=== PATIENT | female | born 1965 | race Caucasian/White ===

== ENCOUNTER 2023-04-15 13:31 | Emergency (ER) | payer OTHER, MEDICARE ==
[~2023-04-15] VITALS: Ht 160 cm; Wt 71.8 kg
[~2023-04-15 13:31] MED LIST: BACTRIM DS 8001 TAB PO; CEPHALEXIN500 M1 PO; NORCO 325 MG-51 TAB PO; PREDNISONE10 MG PO; ZOFRAN ODT4 MG PO
[2023-04-15 13:51] VITALS: TEMP 98.4
[2023-04-15 15:34] LABS: BASO % 0.2 % (0.0-2.0); EOS # 0.1 K/mm3 (0.0-0.7); EOS % 1.2 % (0.0-4.0); GRAN # 4.6 K/mm3 (1.4-6.5); GRAN % 53.8 % (42.2-75.2); HEMOGLOBIN 12.2 g/dl (12.5-16.0); LYMPH # 3.5 K/mm3 (1.2-3.4); MEAN CELL VOLUME 88 fl (80.0-100.0); MEAN CORPUSCULAR HEMOGLOBIN 28 pg (27-31); MEAN CORPUSCULAR HGB CONC 31 g/dl (33.0-37.0); MEAN PLATELET VOLUME 10.1 fl (7.4-10.4); MONO # 0.3 K/mm3 (0.1-0.6); MONO % 3.7 % (1.7-9.3); PLATELET COUNT 413 K/mm3 (130-400); RED BLOOD COUNT 4.42 M/mm3 (4.10-5.30); REDCELL DISTRIBUTION WIDTH-CV 14.1 % (11.5-14.5)
[2023-04-15 15:48] LABS: ALBUMIN 3.7 gm/dL (3.5-5.0); BILIRUBIN,TOTAL 0.2 mg/dL (0.2-1.2); CALCIUM 9.6 mg/dL (8.4-10.2); CREATININE, serum 0.79 mg/dL (0.57-1.11); POTASSIUM 3.4 mmol/L (3.5-4.5); TOTAL PROTEIN 7.9 gm/dL (6.2-8.1)
[2023-04-15 15:56] LABS: TROPONIN-I 0.01 ng/mL (0.00-0.033)
[2023-04-15 16:45] VITALS: BP 142/92; PULSE 79
[2023-04-22] MEDS ORDERED: NORVASC 5MG5 MG/TAB PO (12:31)
== END 2023-04-15 16:45 | disposition home or self-care (01) ==
LOC: COL.ER 13:31
PROVIDERS: Emergency Medicine
DX: I10 Essential (primary) hypertension (principal); D75.839 Thrombocytosis, unspecified

== ENCOUNTER → 2023-12-28 | Outpatient (CLI) | payer MEDICARE, OTHER ==
[~2023-12-28] MED LIST changes: +NORVASC 5MG5 MG/TAB PO
== END ==
LOC: MHCPAIN 10:49
DX: M47.27 Other spondylosis with radiculopathy, lumbosacral region (principal); M48.07 Spinal stenosis, lumbosacral region; M54.50 Low back pain, unspecified
CPT/HCPCS: G0463

== ENCOUNTER → 2023-12-29 | Outpatient (CLI) | payer MEDICARE, OTHER, MEDICAID ==
[~2023-12-29] MED LIST changes: +Iohexol 300 - 10 ML VIAL ONE; +Lidocaine PF 2% (20 MG/ML) 2 ML VIAL ONE
== END ==
LOC: MHCPAIN 15:19
DX: M54.16 Radiculopathy, lumbar region (principal); M54.50 Low back pain, unspecified
CPT/HCPCS: J1100; Q9967

== ENCOUNTER 2024-02-03 23:09 | Emergency (ER) | payer OTHER, MEDICARE ==
[~2024-02-03] VITALS: Ht 160 cm; Wt 66.8 kg
[~2024-02-03 23:09] MED LIST changes: -Iohexol 300 - 10 ML VIAL ONE; -Lidocaine PF 2% (20 MG/ML) 2 ML VIAL ONE
[2024-02-03 23:27] VITALS: TEMP 98.4
[2024-02-03] MEDS ORDERED: Ondansetron 4 MG/2 ML VIAL IV ONE (23:45)
[2024-02-03] MEDS ORDERED: NS 1,000 ML IV ONE (23:45)
[2024-02-03 23:53] LABS: BASO % 0.3 % (0.0-2.0); EOS # 0.1 K/mm3 (0.0-0.7); EOS % 0.5 % (0.0-4.0); GRAN # 11.4 K/mm3 (1.4-6.5); HEMATOCRIT 39.5 % (37.0-47.0); HEMOGLOBIN 12.6 g/dl (12.5-16.0); LYMPH # 2.9 K/mm3 (1.2-3.4); LYMPH % 19.3 % (20.0-51.0); MEAN CELL VOLUME 88 fl (80.0-100.0); MEAN CORPUSCULAR HEMOGLOBIN 28 pg (27-31); MEAN CORPUSCULAR HGB CONC 32 g/dl (33.0-37.0); MEAN PLATELET VOLUME 9.7 fl (7.4-10.4); MONO # 0.7 K/mm3 (0.1-0.6); MONO % 4.6 % (1.7-9.3); PLATELET COUNT 403 K/mm3 (130-400); RED BLOOD COUNT 4.49 M/mm3 (4.10-5.30); REDCELL DISTRIBUTION WIDTH-CV 15.2 % (11.5-14.5)
[2024-02-04 00:13] LABS: ALBUMIN 3.8 g/dL (3.4-4.8); BILIRUBIN,TOTAL 0.3 mg/dL (0.2-1.2); CALCIUM 9.8 mg/dL (8.4-10.2); CREATININE, serum 0.78 mg/dL (0.57-1.11); POTASSIUM 3.6 mEq/L (3.5-4.5); TOTAL PROTEIN 7.6 g/dl (6.2-8.1)
[2024-02-04] MEDS ORDERED: Ketorolac 30 MG/ML VIAL IV ONE (00:15)
[2024-02-04 00:27] LABS: COLLECTION METHOD CLEAN CATCH
[2024-02-04 00:41] LABS: PH 7.5 (5.0-8.5); URINE APPEARANCE CLOUDY (CLEAR/HAZY); URINE BLOOD 3+ (NEGATIVE); URINE COLOR ORANGE (YELLOW); URINE GLUCOSE NEGATIVE (NEGATIVE); URINE KETONE TRACE (NEGATIVE); URINE NITRATE NEGATIVE (NEGATIVE); URINE PROTEIN(semi-quant) 2+ (NEGATIVE)
[2024-02-04] MEDS ORDERED: cefTRIAXone 1 G in Water For Injection,Sterile 10 ML IV ONE (00:45)
[2024-02-04] MEDS ORDERED: Iohexol 300 - 100 ML VIAL IV ONE (01:02)
[2024-02-04] MEDS ORDERED: NS 50 ML IV ONE (01:03)
[2024-02-04] MEDS ORDERED: ZOFRAN ODT4 MG PO (02:01)
[2024-02-04] MEDS ORDERED: FLOMAX 0.40.4 MG/CAP PO (02:01)
[2024-02-04] MEDS ORDERED: TORADOL 10MG TA10 MG PO (02:03)
[2024-02-04 02:17] VITALS: BP 108/57; PULSE 71
[2024-02-05] MEDS ORDERED: ZOLOFT 50MG50 MG PO (16:51)
[2024-02-05] MEDS ORDERED: MOBIC15 MG PO (16:51)
[2024-02-05] MEDS ORDERED: LIORESAL 1010 MG/TAB PO (16:52)
[2024-02-06] MEDS ORDERED: NORCO 325 MG-51 TAB PO (17:54)
== END 2024-02-04 02:17 | disposition home or self-care (01) ==
LOC: COL.ER 23:09
PROVIDERS: Physician Assistant
DX: N13.2 Hydronephrosis with renal and ureteral calculous obstruction (principal); D72.829 Elevated white blood cell count, unspecified
CPT/HCPCS: J0696; J1885; J2405; J7030; Q9967

== ENCOUNTER → 2024-02-21 | Outpatient (CLI) | payer OTHER, MEDICARE ==
[~2024-02-21] MED LIST changes: +FLOMAX 0.40.4 MG/CAP PO; +LIORESAL 1010 MG/TAB PO; +MOBIC15 MG PO; +TORADOL 10MG TA10 MG PO; +ZOFRAN8 MG PO; +ZOLOFT 50MG50 MG PO
== END ==
LOC: MHCPAIN 09:51
DX: M47.817 Spondylosis without myelopathy or radiculopathy, lumbosacral region (principal); M48.061 Spinal stenosis, lumbar region without neurogenic claudication; M54.50 Low back pain, unspecified; G89.29 Other chronic pain
CPT/HCPCS: G0463

== ENCOUNTER 2024-02-23 05:12 | Day surgery (SDC) | payer MEDICARE, OTHER ==
[~2024-02-23] VITALS: Ht 160 cm; Wt 66.9 kg
[~2024-02-23 05:12] MED LIST changes: +LR 1,000 ML IV SCH; -ZOFRAN8 MG PO
[2024-02-23 06:08] VITALS: BP 117/73; PULSE 70; TEMP 98.2
--- NOTE | 2024-02-23 06:10 | NUR ---
Pt admitted to [facility] 8 at 0538. Consent signed. Admission assessments complete. 20G IV inserted into RFA, LR infusing without difficulty. Medications, pharmacy, and allergies confirmed. Pt reports continued discomfort, urinary frequency, and urge incontinence with this stone. Pt reports that her sons jeffery is flying in today but will not be here in time for discharge, will need to take an uber home. Warm blankets provided, lights off. pt resting with eyes closed. Cart in low position, call light within reach.
[2024-02-23] MEDS ORDERED: Lidocaine PF 2% (20 MG/ML) 5 ML VIAL ONE (07:00)
[2024-02-23] MEDS ORDERED: Ondansetron 4 MG/2 ML VIAL ONE (07:00)
[2024-02-23] MEDS ORDERED: Ketorolac 30 MG/ML VIAL ONE (07:00)
[2024-02-23] MEDS ORDERED: NS 10 ML IV ONE (07:00)
[2024-02-23] MEDS ORDERED: dexAMETHasone 10 MG/ML VIAL ONE (07:00)
[2024-02-23] MEDS ORDERED: fentaNYL 50 MCG/ML 2 ML VIAL ONE (07:01)
[2024-02-23] MEDS ORDERED: Lidocaine 2% (20 MG/ML) 20 ML UROJET UR ONE (07:06)
[2024-02-23] MEDS ORDERED: Ondansetron 4 MG/2 ML VIAL IV PRN ×2 (07:15→07:30)
[2024-02-23] MEDS ORDERED: Hyoscyamine 0.125 MG Sublingual TAB SL PRN (07:15)
[2024-02-23] MEDS ORDERED: Naloxone 0.4 MG/ML VIAL IV PRN (07:15)
[2024-02-23] MEDS ORDERED: ePHEDrine 50 MG/ML VIAL ONE (07:17)
[2024-02-23] MEDS ORDERED: fentaNYL 50 MCG/ML 1 ML SYRINGE/VIAL [PACU/SDC ONLY] IV PRN (07:30)
[2024-02-23] MEDS ORDERED: hydrALAZINE 20 MG/ML 1 ML VIAL IV PRN (07:30)
[2024-02-23] MEDS ORDERED: HYDROmorphone 1 MG/1 ML SYRINGE [PACU/SDC ONLY] IV PRN (07:30)
[2024-02-23] MEDS ORDERED: droPERidol 2.5 MG/ML 2 ML VIAL IV PRN (07:30)
[2024-02-23] MEDS ORDERED: ZOFRAN8 MG PO (07:40)
[2024-02-23] MEDS ORDERED: Acetaminophen 500 MG TAB PO SCH (08:00)
[2024-02-23 08:40] VITALS: BP 103/69; PULSE 67; TEMP 97.4
[2024-02-23 08:45] VITALS: BP 116/73
[2024-02-23 08:55] VITALS: BP 111/72; PULSE 63
--- NOTE | 2024-02-23 09:03 | NUR ---
Patient returns from PACU via cart at 0840. Bedside handoff received from SRAVANTHI Rust. Pt denies pain or nausea. Only complaint is feeling groggy. Water at bedside. Pt reports that she has no other options for ride home than an uber. VSS. Call light within reach.
--- NOTE | 2024-02-23 09:07 | NUR ---
Patient continues to deny complaints. Sprite and crackers given at this time.
[2024-02-23 09:10] VITALS: BP 114/74; PULSE 68
--- NOTE | 2024-02-23 09:26 | NUR ---
Pt up to bathroom at 0910. Voids urine, not seen by staff. Dressed at 0915. Discharge instructions and education reviewed with patient at 09, questions answered. IV removed at 09. Pt reports she will call for her uber home and let staff know when she is ready for a w/c ride down to entrance.
--- NOTE | 2024-02-23 09:38 | NUR ---
Pt discharges to [facility] car via w/c at 0935, accompanied by this nurse. Alert, oriented x4, denies any feelings of being groggy or dizziness at that time. Pt tolerated snack without difficulty.
== END 2024-02-23 09:35 | disposition home or self-care (01) ==
LOC: SDCO 05:12
DX: N20.0 Calculus of kidney (principal)
CPT/HCPCS: C1769; C2617; J0690; J1100; J1790; J1885; J2405; J2704; J3010; J7120